=== PATIENT | female | born 1955 | race Caucasian/White ===

== ENCOUNTER → 2021-01-11 | Outpatient (CLI) | payer OTHER ==
[~2021-01-11] MED LIST: KEFLEX CAP 500500 MG PO; NORCO 5-325 TA1 EACH PO
== END ==
LOC: CT 10:00
DX: R31.9 Hematuria, unspecified (principal); N39.3 Stress incontinence (female) (male); R35.0 Frequency of micturition; R39.89 Other symptoms and signs involving the genitourinary system
CPT/HCPCS: 36415; 82565; Q9967